=== PATIENT | female | born 1980 | race Caucasian/White ===

== ENCOUNTER 2016-10-10 13:19 | Emergency (ER) | payer BC ==
--- NOTE | 2016-10-10 13:45 | EDM.PDOC ---
ED HPI GENERAL MEDICAL PROBLEM - General Chief Complaint: Chest Pain Stated Complaint: CHEST PAIN/HEADACHE/R ARM TINGLING Time Seen by Provider: 10/10/16 13:28 Source of Information: Reports: Patient, RN notes reviewed History Limitations: Reports: No limitations - History of Present Illness INITIAL COMMENTS - FREE TEXT/NARRATIVE: The patient states that she has been experiencing sharp chest pain, felt just left of her sternum, on and off for the past 2 weeks. The sensation may be brief, or last as long as 2 hours. It is not modifiable. It does not radiate. She reports occasional dyspnea, but it is not necessarily related to the presence of the chest pain. She denies nausea, diaphoresis, or sense of impending doom. No similar symptoms prior to 2 weeks ago. She states that she saw her PCP, Julio Cesar Almanza, last week. An ECG and blood work were performed, and, according to the patient, were normal. She was prescribed lisinopril because her blood pressure was elevated, although the patient does not have a history of hypertension. - Related Data Allergies Allergy/AdvReac Type Severity Reaction Status Date / Time morphine Allergy Burning Verified 10/10/16 13:28 Home Meds: Home Meds Lisinopril 10 mg PO DAILY 10/10/16 [History] Orphenadrine [Norflex] 1 tab PO Q12H PRN #20 tab.er 10/10/16 [Rx] Past Medical History - Past Surgical History HEENT Surgical History: Reports: Oral surgery ([place] teeth, extraction), Tonsillectomy GI Surgical History: Reports: Cholecystectomy Social & Family History - Tobacco Use Smoking Status *Q: Current Every Day Smoker Years of Tobacco use: 20 Packs/Tins Daily: 0.5 - Caffeine Use Caffeine Use: Reports: Coffee - Alcohol Use Alcohol Use History: Yes Alcohol Use Frequency: Socially - Recreational Drug Use Recreational Drug Use: No - Living Situation & Occupation Living situation: Reports: , alone 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) ED ROS GENERAL - Review of Systems Review Of Systems: See Below Constitutional: Reports: no symptoms HEENT: Reports: No symptoms Respiratory: Reports: No Symptoms Cardiovascular: Reports: No symptoms Endocrine: Reports: no symptoms GI/Abdominal: Reports: No symptoms : Reports: no symptoms Musculoskeletal: Reports: no symptoms Skin: Reports: no symptoms Neurological: Reports: No Symptoms Psychiatric: Reports: No symptoms Hematologic/Lymphatic: Reports: no symptoms Immunologic: Reports: no symptoms ED EXAM, GENERAL - Physical Exam Exam: See Below Exam Limited By: No limitations General Appearance: alert, WD/WN, no apparent distress Eye Exam: bilateral eye: EOMI, normal inspection Ears: normal external exam, hearing grossly normal Ear Exam: bilateral ear: auricle normal Nose: normal inspection, no blood Throat/Mouth: Normal inspection, Normal lips, Normal voice, No airway compromise Head: atraumatic, normocephalic Neck: normal inspection, full range of motion Respiratory/Chest: no respiratory distress, lungs clear, normal breath sounds, no accessory muscle use, chest non-tender (Including to the area of concern, just left of the sternum) Cardiovascular: normal peripheral pulses, regular rate, rhythm, no edema, no gallop, no JVD, no murmur, no rub Peripheral Pulses: 4+: radial (L), radial (R) GI/Abdominal: normal bowel sounds, soft, non tender, no organomegaly, no distention, no abnormal bruit, no mass Back Exam: normal inspection, full range of motion, NT Extremities: normal inspection, normal range of motion, non-tender, normal capillary refill, no pedal edema Neurological: alert, oriented, normal cognition, no motor/sensory deficits Psychiatric: normal affect Skin Exam: Warm, Dry, Intact, Normal color, No rash Lymphatic: no adenopathy EKG INTERPRETATION EKG Date: 10/10/16 Time: 13:32 Rhythm: other (Sinus tachycardia) Rate (beats/min): 104 [place]: normal P-wave: present QRS: normal ST-T: normal QT: normal Comparison: NA - no prior EKG Course - Vital Signs Last Recorded V/S: Last Vital Signs Temp 36.2 C 10/10/16 13:29 Pulse 90 10/10/16 15:14 Resp 18 10/10/16 15:14 BP 110/69 10/10/16 15:14 Pulse Ox 100 10/10/16 15:14 - Orders/Labs/Meds Orders: Active Orders 24 hr Category Date Time Status EKG Documentation Completion [RC] STAT Care 10/10/16 13:41 Active Chest 2V [CR] Stat Exams 10/10/16 13:41 Taken Labs: Laboratory Tests 10/10/16 10/10/1610/10/17 Range/Units 13:45 13:45 13:45 WBC 9.37 (3.98-10.04) K/mm3 RBC 4.36 (3.98-5.22) M/mm3 Hgb 13.3 (11.2-15.7) gm/L Hct 39.5 (34.1-44.9) % MCV 90.6 (79.4-94.8) fl MCH 30.5 (25.6-32.2) pg MCHC 33.7 (32.2-35.5) g/dl RDW Std Deviation 40.1 (36.4-46.3) fL Plt Count 288 (182-369) K/mm3 MPV 10.3 (9.4-12.3) fl Neutrophils % (Manual) 61 H (40-60) % Band Neutrophils % 0 (0-10) % Lymphocytes % (Manual) 37 (20-40) % Atypical Lymphs % 0 % Monocytes % (Manual) 1 L (2-10) % Eosinophils % (Manual) 0 L (0.7-5.8) % Basophils % (Manual) 1 (0.1-1.2) Platelet Estimate Adequate RBC Morph Comment Normal PT 10.2 (8.0-13.0) SECONDS INR 0.94 APTT 28 (22-36) SECONDS D-Dimer, Quantitative 0.28 (0.19-0.59) mg/L Sodium 138 (136-145) mEq/L Potassium 3.9 (3.5-5.1) mEq/L Chloride 102 (98-107) mEq/L Carbon Dioxide 26 (21-32) mEq/L Anion Gap 13.9 (5-15) BUN 16 (7-18) mg/dL Creatinine 0.7 (0.55-1.02) mg/dL Est Cr Clr Drug Dosing 101.90 mL/min Estimated GFR (MDRD) > 60 (>60) mL/min BUN/Creatinine Ratio 22.9 H (14-18) Glucose 103 (74-106) mg/dL Calcium 9.2 (8.5-10.1) mg/dL Total Bilirubin 0.2 (0.2-1.0) mg/dL AST 14 L (15-37) U/L ALT 22 (14-59) U/L Alkaline Phosphatase 73 (46-116) U/L Troponin I < 0.017 (0.00-0.056) ng/mL B-Natriuretic Peptide (0-100) pg/mL Total Protein 7.3 (6.4-8.2) g/dl Albumin 3.7 (3.4-5.0) g/dl Globulin 3.6 gm/dL Albumin/Globulin Ratio 1.0 (1-2) 10/10/16 Range/Units 13:45 WBC (3.98-10.04) K/mm3 RBC (3.98-5.22) M/mm3 Hgb (11.2-15.7) gm/L Hct (34.1-44.9) % MCV (79.4-94.8) fl MCH (25.6-32.2) pg MCHC (32.2-35.5) g/dl RDW Std Deviation (36.4-46.3) fL Plt Count (182-369) K/mm3 MPV (9.4-12.3) fl Neutrophils % (Manual) (40-60) % Band Neutrophils % (0-10) % Lymphocytes % (Manual) (20-40) % Atypical Lymphs % % Monocytes % (Manual) (2-10) % Eosinophils % (Manual) (0.7-5.8) % Basophils % (Manual) (0.1-1.2) Platelet Estimate RBC Morph Comment PT (8.0-13.0) SECONDS INR APTT (22-36) SECONDS D-Dimer, Quantitative (0.19-0.59) mg/L Sodium (136-145) mEq/L Potassium (3.5-5.1) mEq/L Chloride (98-107) mEq/L Carbon Dioxide (21-32) mEq/L Anion Gap (5-15) BUN (7-18) mg/dL Creatinine (0.55-1.02) mg/dL Est Cr Clr Drug Dosing mL/min Estimated GFR (MDRD) (>60) mL/min BUN/Creatinine Ratio (14-18) Glucose (74-106) mg/dL Calcium (8.5-10.1) mg/dL Total Bilirubin (0.2-1.0) mg/dL AST (15-37) U/L ALT (14-59) U/L Alkaline Phosphatase (46-116) U/L Troponin I (0.00-0.056) ng/mL B-Natriuretic Peptide < 15 (0-100) pg/mL Total Protein (6.4-8.2) g/dl Albumin (3.4-5.0) g/dl Globulin gm/dL Albumin/Globulin Ratio (1-2) Meds: Medications Discontinued Medications Generic Name Dose Route Start Last Admin Trade Name Freq PRN Reason Stop Dose Admin Orphenadrine Citrate 100 mg 10/10/16 14:36 10/10/16 14:45 Norflex PO 10/10/16 14:37 100 mg ONETIME STA Administration - Re-Assessments/Exams Free Text/Narrative Re-Assessment/Exam: 10/10/16 14:45 Test results discussed with the patient. Today's workup is entirely unremarkable, and does not find a cause of the patient's pain. Clinically, the patient is suffering from an intercostal muscle spasm. I have ordered Norflex, and will prescribe the same. Departure - Departure Time of Disposition: 14:49 Disposition: Home, Self-Care 01 Condition: good Clinical Impression: Musculoskeletal chest pain Prescriptions: Orphenadrine [Norflex] 1 tab PO Q12H PRN #20 tab.er PRN Reason: Muscle Spasm Instructions: Nonspecific Chest Pain, [id number] Referrals: Cami Harrell NP [Primary Care Provider] - Forms: ED Department Discharge Additional Instructions: You were seen in the emergency room today for left-sided chest pain, on and off for the past 2 weeks. Workup in the ER included blood work, an ECG, and a chest x-ray. Your entire workup was normal. You are not suffering from a heart attack. You do not have a blood clot in your lungs. You do not have pneumonia. You do not have a collapsed lung. Your pain is MOST LIKELY due to a spasm of a muscle in between your ribs. You have been started on the muscle relaxant Norflex. Take one tablet every 12 hours, as prescribed. You may also take [id number] ibuprofen as needed for discomfort. If your symptoms persist, please followup with your PCP, Cami Harrell. If your symptoms worsen, please do not hesitate to return to the ER for reevaluation. By your history, you probably do not have hypertension. We recommend that you discontinue the lisinopril. In order to determine if you have hypertension or not, your blood pressure needs to be checked while you are under restful conditions, meaning that you are sitting quietly for at least 5 minutes, preferably 15 minutes, you are not in pain, you are not sick, and you are not feeling anxious. Under these conditions, we recommend that you check your blood pressure 2-3 times a week for 2-3 weeks. Write the numbers down and bring them with you when you followup with Cami Harrell. - My Orders Last 24 Hours: My Active Orders 10/10/16 13:41 EKG Documentation Completion [RC] STAT Chest 2V [CR] Stat - Assessment/Plan Last 24 Hours: My Active Orders 10/10/16 13:41 EKG Documentation Completion [RC] STAT Chest 2V [CR] Stat
[2016-10-10] MEDS ORDERED: Orphenadrine 100 MG Tab.ER PO STA (14:36)
[2016-10-10 15:19] VITALS: BP 110/69
--- NOTE | 2016-10-11 08:40 | CR ---
Chest: Two views of the chest were obtained. Comparison: No previous study. Heart size and mediastinum are normal. Lungs are clear. Bony structures are unremarkable. Surgical clips seen from prior cholecystectomy. Impression: 1. Nothing acute is identified on two-view chest x-ray. Diagnostic code #2
== END 2016-10-10 15:14 | disposition home or self-care (01) ==
LOC: JD.ED 13:19
DX: R07.89 Other chest pain (principal); F17.200 Nicotine dependence, unspecified, uncomplicated; Z88.5 Allergy status to narcotic agent; Z79.899 Other long term (current) drug therapy
CPT/HCPCS: 36415; 71020; 80053; 83880; 84484; 85025; 85379; 85610; 85730; 93005; 99285; A9270; 99284